=== PATIENT | male | born 1970 | race Caucasian/White ===

== ENCOUNTER 2020-08-30 09:26 | Inpatient (IN) | payer BC ==
[~2020-08-30] VITALS: Ht 170.2 cm; Wt 106.1 kg
--- NOTE | 2020-08-30 09:37 | NUR ---
The patient self present self to ER for compliant of left sided chest pain r/t LUE for "few days." Patient is taken to ER bed #1. Complians of chest pain 12/13 and MD is aware. In room air and denies sob. Respiration regular and unlabored. The patient is attached to a monitor. Will continue to monitor.
--- NOTE | 2020-08-30 09:40 | NUR ---
Christine Nelson 18. Blood specimen collected and sent to the lab.
[2020-08-30 09:56] LABS: MONOCYTES # (AUTO) 0.4 /CMM (0.1-1.30)
[2020-08-30] MEDS ORDERED: NITROGLYCERIN PACKET 1 GM PACKET TD ONE (10:00)
[2020-08-30] MEDS ORDERED: ASPIRIN 325 MG TABLET PO ONE (10:00)
[2020-08-30 10:01] LABS: BASOPHILS # (AUTO) 0.1 /CMM (0.0-0.2); BASOPHILS % (AUTO) 1.1 % (0.0-2.0); EOSINOPHILS % (AUTO) 5.2 % (0.0-6.0); HEMATOCRIT 49 % (39-51); HEMOGLOBIN 16.7 g/dL (13.5-17.5); LYMPHOCYTES # (AUTO) 1.7 /CMM (0.8-4.8); LYMPHOCYTES % (AUTO) 36.5 % (20.0-44.0); MEAN CORPUSCULAR HGB CONC 34 g/dl (31.0-36.0); MEAN CORPUSCULAR VOLUME 94 fL (80-96); MONOCYTES % (AUTO) 8.1 % (2.0-12.0); NEUTROPHILS # (AUTO) 2.2 /CMM (1.8-8.9); NEUTROPHILS % (AUTO) 49.1 % (43.0-81.0); PLATELET COUNT (AUTO) 176 /CMM (150-450); RED BLOOD CELL COUNT(AUTO) 5.16 MIL/uL (4.5-6.0); WHITE BLOOD COUNT (AUTO) 4.6 K/uL (4.3-11.0)
[2020-08-30] MEDS ORDERED: LISI20TA30 PO (10:03)
[2020-08-30 10:07] LABS: CALCIUM, SERUM 8.9 mg/dL (8.5-10.1); CARBON DIOXIDE 27 mmol/L (21-32); CHLORIDE 102 mmol/L (98-107); CREATININE 0.8 mg/dL (0.6-1.3); GLUCOSE 115 mg/dL (74-106); POTASSIUM 4.5 mmol/L (3.5-5.1); SODIUM SERUM 138 mmol/L (136-145); UREA NITROGEN, BLOOD 21 mg/dL (7-18)
[2020-08-30] MEDS ORDERED: NITROGLYCERIN PACKET 1 GM PACKET ONE (10:07)
[2020-08-30] MEDS ORDERED: ASPIRIN 325 MG TABLET ONE (10:08)
[2020-08-30] MEDS ORDERED: ASPI-1169 PO (10:09)
[2020-08-30 10:12] LABS: ALANINE AMINOTRANSFERASE 354 U/L (12-78); ALKALINE PHOSPHATASE 112 U/L (46-116); ASPARTATE AMINOTRANSFERASE 153 U/L (15-37); BILIRUBIN,DIRECT 0.2 mg/dL (0.0-0.2); BILIRUBIN,TOTAL 0.8 mg/dL (0.2-1.0)
--- NOTE | 2020-08-30 10:55 | NUR ---
BED 322-1
--- NOTE | 2020-08-30 11:29 | NUR ---
REPORT GIVEN TO ELY. PT AWAITING TRANSFER TO FLOOR.
[2020-08-30] MEDS ORDERED: HYDROCODONE/APAP 5/325MG TABLET PO PRN (11:30)
[2020-08-30] MEDS ORDERED: ZOLPIDEM TARTRATE 5 MG TABLET PO PRN (11:30)
[2020-08-30] MEDS ORDERED: ONDANSETRON HCL/PF 4 MG/2 ML VIAL IVP PRN (11:30)
[2020-08-30] MEDS ORDERED: ACETAMINOPHEN 325 MG TABLET PO PRN (11:30)
[2020-08-30] MEDS ORDERED: MAGNESIUM HYDROXIDE 30 ML UDC PO PRN (11:30)
[2020-08-30] MEDS ORDERED: Z GUARD REMEDY 2 OZ OINT TP PRN (11:30)
[2020-08-30] MEDS ORDERED: MAG HYDROX/AL HYDROX/SIMETH 30 ML UDC PO PRN (11:30)
[2020-08-30 11:45] VITALS: BP 148/110
--- NOTE | 2020-08-30 11:49 | NUR ---
Patient AAO x4. Transfered to [facility] per acls protocol.
[2020-08-30 11:50] VITALS: BP 124/78
--- NOTE | 2020-08-30 11:50 | NUR ---
MANAGER OF COMPLIANCE NOTE RECEIVED PT INTO ROOM 322-1. A/O X3 AND ABLE TO UNDERSTAND [place]. ABLE TO MAKE NEEDS KNOWN TO NURSES. NO COMPLAINT OF PAIN. CURRENTLY ON RA WITH NO SOB OR RESPIRATORY DISTRESS PRESENT. RECORDED SINUS RHYTHM ON EXTERNAL MONITOR. AMBULATORY. ABLE TO DO TOILETING. SKIN IS INTACT. HL PRESENT ON L AC, 18G. SAFETY MEASURES IN PLACE. SIDE RAILS RAISED. BED LOWERED. CALL LIGHT WITHIN REACH. WILL CONTINUE TO MONITOR.
[2020-08-30] MEDS ORDERED: IV SET PRIMARY PUMP SET 1 EA INFUS.SET MC ONE (11:51)
[2020-08-30] MEDS ORDERED: IV NS 0.9% 1,000 ML ONE (11:51)
[2020-08-30] MEDS ORDERED: VERAPAMIL HCL IV 5 MG/2 ML VIAL ONE (11:52)
[2020-08-30] MEDS ORDERED: HEPARIN SODIUM, PORCINE 1,000 UNIT/ML VIAL ONE (11:52)
[2020-08-30] MEDS ORDERED: LIDOCAINE HCL/MPF 1% 30 ML VIAL IJ ONE (11:52)
[2020-08-30] MEDS ORDERED: IODIXANOL 150 ML IV ONE (11:52)
[2020-08-30] MEDS ORDERED: NITROGLYCERIN ICAR 1,000 MCG/10 ML VIAL ICAR ONE (11:53)
[2020-08-30] MEDS ORDERED: MIDAZOLAM HCL 2 MG/2ML VIAL ONE (12:32)
[2020-08-30] MEDS ORDERED: FENTANYL PF 100MCG/2ML AMPUL ONE (12:32)
--- NOTE | 2020-08-30 14:22 | NUR ---
RN NOTE REMOVED 3 CC OF AIR FROM TR BAND. 8 CC REMAINING. BP 120/67. IN 67. SPO2 94%. WILL CONTINUE TO MONITOR.
--- NOTE | 2020-08-30 14:46 | NUR ---
RN NOTE REMOVED 3 CC OF AIR FROM TR BAND. NO SIGNS OF BLEEDING. BP 118/87. MT 66. O2 SAT 93%. WILL CONTINUE TO MONITOR.
--- NOTE | 2020-08-30 15:06 | NUR ---
RN NOTE REMOVED 3CC OF AIR FROM TR BAND. 2 CC REMAINING. NO SIGNS OF BLEEDING. PULSE PRESENT. BP 120/85. MI 67. O2 SAT 95%. WILL CONTINUE TO MONITOR.
--- NOTE | 2020-08-30 15:26 | NUR ---
RN NOTE REMOVED 2 CC OF AIR FROM TR BAND. TR BAND REMOVED. GAUZE DRESSING APPLIED. NO SIGNS OF BLEEDING. V/S 131/87. SC 73. O2 SAT 93%. WILL CONTINUE TO MONITOR.
[2020-08-30 15:59] VITALS: BP 131/86
[2020-08-30 16:32] VITALS: BP 131/76
[2020-08-30] MEDS ORDERED: LISINOPRIL (20MG) 20 MG TABLET PO SCH (17:00)
[2020-08-30] MEDS ORDERED: METOPROLOL TARTRATE 50 MG TABLET PO SCH (21:00)
[2020-08-31] MEDS ORDERED: PANTOPRAZOLE 40 MG TABLET.DR PO SCH (07:30)
[2020-08-31] MEDS ORDERED: ASPIRIN 81 MG TAB.CHEW PO SCH (09:00)
== END 2020-08-30 17:15 | disposition home or self-care (01) | DRG 287 ==
LOC: ER 09:43 → TELE 11:05
PROVIDERS: ADMIT Student in an Organized Health Care Education/Training Program; ATTEND Student in an Organized Health Care Education/Training Program
PROC: 4A023N7 Measurement of Cardiac Sampling and Pressure, Left Heart, Percutaneous Approach (ICD-10-PCS; principal; 2020-08-30)
PROC: B211YZZ Fluoroscopy of Multiple Coronary Arteries using Other Contrast (ICD-10-PCS; 2020-08-30)
DX: I20.0 Unstable angina (principal); R07.89 Other chest pain; E78.5 Hyperlipidemia, unspecified; F17.210 Nicotine dependence, cigarettes, uncomplicated; I10 Essential (primary) hypertension; Z79.82 Long term (current) use of aspirin; R74.01 Elevation of levels of liver transaminase levels; Z72.89 Other problems related to lifestyle; Z71.6 Tobacco abuse counseling; Z20.822 Contact with and (suspected) exposure to COVID-19; K76.0 Fatty (change of) liver, not elsewhere classified
CPT/HCPCS: 36415; 71045-TC; 76700-TC; 80048-TC; 80076-TC; 84484-TC; 85025-TC; 85730-TC; 86704; 86705; 86706; 86803; 87081-TC; G0378; G0500; J1644; J2250; J3010; J3490; Q9967